=== PATIENT | male | born 1945 | race Caucasian/White ===

== ENCOUNTER 2018-01-14 08:04 | Outpatient (CLI) | payer MEDICARE ==
--- NOTE | 2018-01-14 10:26 | ULT ---
ABDOMINAL AORTIC ULTRASOUND: Date: 01/14/18 INDICATION: Abdominal aortic aneurysm screening. FINDINGS: Abdominal aorta is identified by ultrasound. There is no evidence of abdominal aortic aneurysm. Proxi mal abdominal aorta measures 2.2 cm diameter. Mid abdominal aorta measures 1.7 cm. Distal abdominal a shalini measures 1.4 cm. IMPRESSION: No evidence of abdominal aortic aneurysm. POS: [facility]
== END 2018-01-14 08:05 | disposition home or self-care (01) ==
LOC: SCSULT 08:04
PROVIDERS: ATTEND Family Medicine
DX: Z13.6 Encounter for screening for cardiovascular disorders (principal)
CPT/HCPCS: 76775

== ENCOUNTER 2018-06-02 10:36 | Outpatient (CLI) | payer MEDICARE | END 2018-06-02 10:37 | disposition home or self-care (01) | LOC: CTENTCT 10:36 | PROVIDERS: ATTEND Specialist | DX: R22.0 Localized swelling, mass and lump, head (principal) | CPT/HCPCS: 70486 ==

== ENCOUNTER 2019-08-22 09:31 | Outpatient (CLI) | payer OTHER ==
--- NOTE | 2019-08-22 10:25 | MRI ---
LUMBAR SPINE MRI WITHOUT CONTRAST: DATE: 08/22/2019. COMPARISON: None. HISTORY: Back pain, lumbosacral spondylosis. TECHNIQUE: Multiplanar multisequence MR imaging of the lumbar spine without contrast. FINDINGS: The sagittal STIR imaging demonstrates no focal area of osseous marrow edema. On the basis of 5 lumbar-type vertebral bodies, conus medullaris terminates at T12-L1. T12-L1: Mild anterior osteophyte formation with disc space narrowing and mild disc bulge. No signific ant central canal or neural foraminal stenosis. L1-2: There is disc space narrowing and disc desiccation. There is a small disc protrusion in the lef t foraminal region. No significant central canal or neural foraminal stenosis. L2-3: There is disc space narrowing and disc desiccation with mild anterior osteophyte formation and mild disc bulge. Mild bilateral facet hypertrophy present with mild central canal stenosis. There is mild bilateral neural foraminal stenosis. L3-4: There is disc space narrowing with disc desiccation and degenerative endplate change, particula rly on the right. Mild bilateral facet hypertrophy. Mild right neural foraminal stenosis. No significant central canal or left neural foraminal stenosis. L4-5: Disc space narrowing and disc desiccation. Mild bilateral facet hypertrophy. Mild left neural f oraminal stenosis. No significant central canal or right neural foraminal stenosis. L5-S1: Disc space narrowing and disc desiccation. Anterolisthesis present measuring approximately 8 m m. Bilateral pars defects are present. Severe left and moderate/severe right neural foraminal stenosis. No significant central canal stenosis. Multiple cysts are noted within the posterior aspect of the midpole right kidney. IMPRESSION: Multilevel degenerative change within the lumbar spine as detailed above, most prominent at the L5-S1 level where there are bilateral L5 pars defects with significant associated bilateral L5-S1 neural foraminal stenosis and anterolisthesis at L5-S1. Transcribed Date/Time: 08/22/2019 10:39 AM
== END 2019-08-22 09:32 | disposition home or self-care (01) ==
LOC: SCSMRI 09:31
PROVIDERS: ATTEND Specialist
DX: M43.07 Spondylolysis, lumbosacral region (principal); M47.816 Spondylosis without myelopathy or radiculopathy, lumbar region; M47.817 Spondylosis without myelopathy or radiculopathy, lumbosacral region; M43.06 Spondylolysis, lumbar region; M48.07 Spinal stenosis, lumbosacral region
CPT/HCPCS: 72148

== ENCOUNTER 2020-10-26 07:41 | Outpatient (CLI) | payer MEDICARE ==
[2020-10-26 14:57] LABS: Hemoglobin 13.9 g/dL (14.0-18.0); Mean Corpuscular HGB CONC 33.6 G/DL (32.0-36.0); Mean Corpuscular Hemoglobin 34.1 PG (27.0-33.0); Mean Corpuscular Volume 101.5 fl (80.0-100.0); Mean Platelet Volume 8.9 fl (7.4-10.4); Platelet Count 124 10x3/uL (130-400); RBC Distribution Width 12.9 % (11.5-14.5); Red Blood Cell (RBC) Count 4.08 10x6/uL (4.40-5.80)
[2020-10-26 14:58] LABS: Bilirubin Neg (Negative); Blood, Urine Negative (Negative); Clarity Clear (Clear); Glucose, Urine (Dipstick) Normal (Negative); Ketone, Urine Negative (Negative); Leukocyte Negative (Negative); Nitrite Negative (Negative); Protein, Urine (Dipstick) Negative (Neg-Trace)
[2020-10-26 15:14] LABS: Anion Gap 16 mmol/L (10-20); BUN (Urea Nitrogen) 19 mg/dL (8.4-25.7); Calc. Creatinine Clearance 0 mL/min (70-130); Calcium 9.8 mg/dL (7.8-10.44); Carbon Dioxide 25 mmol/L (23-31); Chloride 105 mmol/L (98-107); Glucose 87 mg/dL (83-110); INR-International Normal Ratio 1.1; PTT 27.7 sec (22.0-33.0); Potassium 4.6 mmol/L (3.5-5.1); Sodium 141 mmol/L (136-145)
[2020-10-26 15:41] LABS: RBC/HPF 0-3 HPF (0-3); WBC/HPF 0-3 HPF (0-3)
[2020-10-26 15:42] LABS: Bacteria/HPF Rare-Few HPF (None Seen); Squamous Epithelial 0-3 HPF (0-3)
[2020-10-27 03:57] LABS: SARS-CoV-2 MS2 Positive; SARS-CoV-2 N Gene Negative; SARS-CoV-2 S Gene Negative; SARS-CoV-2 by NAA Not Detected (NotDetected); SARS-CoV-2 orf1ab Negative
--- NOTE | 2020-11-04 19:35 | EKG ---
Test Reason : Blood Pressure : / mmHG Vent. Rate : 060 BPM Atrial Rate : 060 BPM P-R Int : 138 ms QRS Dur : 112 ms QT Int : 466 ms P-R-T Axes : 000 -37 -03 degrees QTc Int : 466 ms Normal sinus rhythm Left axis deviation Abnormal ECG No previous ECGs available Confirmed by STEPHANIE CUEVAS MD ([id number]) on 11/04/2020 7:35:19 PM Referred By: ARSH Confirmed By:STEPHANIE CUEVAS MD
== END 2020-10-26 07:42 | disposition home or self-care (01) ==
LOC: LABBT 07:41
PROVIDERS: ATTEND Urology
DX: Z01.818 Encounter for other preprocedural examination (principal); Z20.822 Contact with and (suspected) exposure to COVID-19; Z12.5 Encounter for screening for malignant neoplasm of prostate; N40.1 Benign prostatic hyperplasia with lower urinary tract symptoms; N52.9 Male erectile dysfunction, unspecified; R35.1 Nocturia; Z87.891 Personal history of nicotine dependence
CPT/HCPCS: 80048; 81001; 85027; 85610; 85730; 87086; 93005; U0003; U0005; 87635; 93010

== ENCOUNTER 2020-10-31 06:14 | Day surgery (SDC) | payer MEDICARE ==
[2020-10-29 10:11] VITALS: BMI 29.5
[2020-10-31] MEDS ORDERED: Levofloxacin 500 mg/D5W 100 ml Premix Bag ONE (06:56)
[2020-10-31] MEDS ORDERED: HYDROcodone/Acetaminophen 5/325 mg Tablet ONE (10:06)
[2020-10-31] MEDS ORDERED: Phenazopyridine HCl 100 MG TAB ONE (10:06)
[2020-10-31] MEDS ORDERED: PROPOFOL 200 MG/20 ML VIAL ONE (10:12)
[2020-10-31] MEDS ORDERED: Lidocaine 1% PF 5 ML VIAL ONE (10:12)
--- NOTE | 2020-10-31 10:21 | OP ---
DATE OF PROCEDURE: 10/31/2020 PRIMARY CARE PHYSICIAN: Gamaliel Thacker MD. PREOPERATIVE DIAGNOSIS: A 74-year-old male with history of BPH, IPSS score of 27. POSTOPERATIVE DIAGNOSIS: A 74-year-old male with history of BPH, IPSS score of 27. PROCEDURE: Cystoscopy, UroLift implant x4. ANESTHESIA: TIVA. COMPLICATIONS: None apparent. INTRAOPERATIVE FINDINGS: 1. As previous, [id number] bilobar hyperplasia of the prostate with no median lobe. 2. Diffuse bladder trabeculation, small bladder diverticulum at the dome of the bladder with wide os. 3. Mild occult bulbar urethral stricture, nonobstructing, did not warrant treatment. SPECIMENS: None. ESTIMATED BLOOD LOSS: Minimal. INDICATIONS FOR THE PROCEDURE AND HISTORY: Mr. Torie bello is a pleasant 74-year-old male with history of BPH, has had suboptimal results with tamsulosin and desires to proceed with UroLift as he researched this technique online. Anatomical workup demonstrated that he is a good candidate and presents today. He is also bothered by nocturia; I informed to him that I cannot guarantee that is nocturia was resolved; however, as he has diffuse bladder trabeculation consistent with chronic outlet obstruction, he desired to proceed with BPH surgical intervention. We did discuss alternative options including TURP. Risks and complications of procedure have been discussed with him in detail including, but not limited to: Bleeding, pain, infection, injury to adjacent organs, urosepsis, ureteral bladder injury, possible secondary procedure, migration of implant, warranting removal, encrustation. All questions answered to his satisfaction. He desired to proceed without reservation. DESCRIPTION OF PROCEDURE: After an informed consent was signed, the patient was taken to the operating room, placed in dorsal lithotomy position. Genital area was formally prepped and draped, and broad-spectrum antibiotics were provided. A 21-Gambian cystoscope was utilized for cystoscopy with a visual obturator. There was an occult bulbar stricture of wide caliber, nonobstructing. This was passively dilated upon passage of the scope. Bilobar hyperplasia of the prostate was noted with high median bar, no intravesical median lobe was noted. There was diffuse bladder trabeculation and bladder diverticulum as previous cystoscopy demonstrated in my office. At this time, we transitioned to a visual obturator, and a UroLift implant device was deployed. A total of 4 implants were placed. As he does have a short prostatic urethral length, we performed the stacking maneuver at mid prostate gland with 2 implants in each lobe. Due to a high median bar, stacking maneuver was utilized, which at the end of the procedure did create an opening at the bladder neck, with good anterior channel. An 18-Gambian catheter was passed without difficulty and 30 mL insufflated. We will monitor for a voiding trial. Postop medications sent to this patient's pharmacy, will see me tomorrow for a peak- flow PVR. Job ID: [id number] MTDD
== END 2020-10-31 15:50 | disposition home or self-care (01) ==
LOC: SDC 06:14
PROVIDERS: ATTEND Urology
PROC: 0T7D8DZ Dilation of Urethra with Intraluminal Device, Via Natural or Artificial Opening Endoscopic (ICD-10-PCS; principal; 2020-10-31)
DX: N40.1 Benign prostatic hyperplasia with lower urinary tract symptoms (principal); N13.8 Other obstructive and reflux uropathy; R35.1 Nocturia; N32.89 Other specified disorders of bladder; N32.3 Diverticulum of bladder; N35.912 Unspecified bulbous urethral stricture, male; N52.9 Male erectile dysfunction, unspecified; F41.9 Anxiety disorder, unspecified; E03.9 Hypothyroidism, unspecified; E78.5 Hyperlipidemia, unspecified; M19.90 Unspecified osteoarthritis, unspecified site; Z87.891 Personal history of nicotine dependence; Z79.82 Long term (current) use of aspirin; Z79.899 Other long term (current) drug therapy
CPT/HCPCS: J1956; J2704; L8699

== ENCOUNTER 2022-08-18 14:23 | Outpatient (CLI) | payer MEDICARE | END 2022-08-18 14:24 | disposition home or self-care (01) | LOC: SCSMRI 14:23 | PROVIDERS: ATTEND Nurse Practitioner Family | DX: M47.817 Spondylosis without myelopathy or radiculopathy, lumbosacral region (principal); M47.816 Spondylosis without myelopathy or radiculopathy, lumbar region | CPT/HCPCS: 72120; 72148 ==

== ENCOUNTER 2022-10-20 09:01 | Outpatient (CLI) | payer MEDICARE | END 2022-10-20 09:02 | disposition home or self-care (01) | LOC: SCSMRI 09:01 | PROVIDERS: ATTEND Psychiatry & Neurology Sleep Medicine | DX: G20 Parkinson's disease (principal); R41.9 Unspecified symptoms and signs involving cognitive functions and awareness | CPT/HCPCS: 70551 ==